=== PATIENT | female | born 1995 | race Caucasian/White ===

== ENCOUNTER 2019-08-07 08:19 | Observation (INO) ==
[2019-08-07 08:28] VITALS: BMI 23.1
[2019-08-07 09:12] LABS: BILIRUBIN,URINE NEGATIVE (NEGATIVE); BLOOD/HEMOGLOBIN,URINE NEGATIVE (NEGATIVE); GLUCOSE, URINE NEGATIVE (NEGATIVE); KETONES,URINE 1+ (NEGATIVE); LEUKOCYTE ESTERASE ,URINE 1+ (NEGATIVE); NITRITES,URINE NEGATIVE (NEGATIVE); PROTEIN,URINE 2+ (NEGATIVE); UROBILINOGEN,URINE 1+ (NORMAL)
[2019-08-07] MEDS ORDERED: ZOFRAN INJ 4 MG VIAL IVP ONE (09:15)
[2019-08-07] MEDS ORDERED: NS 1000 ML 1,000 ML IV ONE (09:15)
--- NOTE | 2019-08-07 09:15 | ED.ABDFE ---
HPI Time Seen Time Seen by Provider: 08/07/19 09:00 PCP Primary Care Physician: ADAM ALLEN Complaint Doctors Chief Complaint Comments: A 23 y/o female presenting with Rt. sided and mid. abdominal pain. This started at about 0300 hrs. today. It was sharp and crampy in nature and had remained constant, though it has lessened in intensity now. There was no radiation. She felt chills but has had no fever, SOB or cough. She had vomited twice. Chief Complaint:: PT STATED SHE HAS BEEN HAVING SHARP ABD PAIN, MILD PAIN LAST DECEMBER, AND THIS MORNING AT 3AM THE PAIN WAS SEVERE. STATED SHE VOMITED 2 TIMES IN THE PAST 24 HOURS Reviewed Nurses Notes Review: Yes Source History Provided: Patient Mode of arrival Mode of Arrival: Ambulatory Timing Onset of Chief Complaint: 12/25/18 Came on: Gradually Duration Since Onset: Constant Severity Severity: Moderate and Severe Quality Quality: Cramping Context History of: None Modifying factors Worsening Factors: Nothing Improving Factors: denies Antacids, Food, Position, Lying Still and Nothing Associated signs and symptoms Associated Signs and Symptoms: Nausea and Vomiting PMH PMH Past Medical History: No Past Surgical History: Yes Past Surgical History Comment: TEETH Family History History of Family Medical Conditions: No Social History Does patient currently use any type of tobacco product: No Have you used tobacco products in the last 12 months: No Type of Tobacco Use: None Does any household member use tobacco: No Alcohol Use: Rarely Do you use any recreational Drugs:: No Lives With: Family Lives Where: Home Travel Risk Coronavirus risk:travel/contact w/high risk person: No Has patient experienced Coronavirus symptoms: No Infectious screening In the last 2 months have you had wt loss of >10#?: NO Have you had fever, night sweats or hemotysis?: No Have you traveled outside the country in the last 6 months?: No Isolation: Standard ROS Review of Systems Constitutional: Chills Eyes: No Symptoms Reported ENTM: No Symptoms Reported Respiratoy: No Symptoms Reported Cardiovascular: No Symptoms Reported Gastrointestinal/Abdominal: Abdominal Pain, Nausea and Vomiting Genitourinary: No Symptoms Reported Neurological: No Symptoms Reported Musculoskeletal: No Symptoms Reported Integumentary: No Symptoms Reported Hematologic/Lymphatic: No Symptoms Reported Endocrine: No Symptoms Reported Psychiatric: No Symptoms Reported PE Vital Signs Vitals: Temperature 98.3 F Pulse Rate 76 Respiratory Rate 18 Blood Pressure 119/85 O2 Sat by Pulse Oximetry 98 General Limitations: No Limitations General Appearance: Alert and In No Apparent Distress Head Head Exam: Normal Inspection, Atraumatic and Normocephalic Eyes Eye exam: Normal Appearance and EOMI ENT ENT Exam: Normal Exam, Normal Oropharynx, Normal External Ear Exam and Mucous Membranes Moist Neck Neck Exam: Normal Inspection, Full ROM and Trachea Midline Chest Chest Inspection: Normal Inspection Respiratory Respiratory Exam: Normal Lung Sounds Bilat Cardiovascular Cardiovascular Exam: Regular Rate, Normal Rhythm, Normal Heart Sounds, +S1 and +S2 Abdominal Exam Abdominal Exam: Normal Inspection, Normal Bowel Sounds, Soft and Tenderness; negative Distention, Guarding, Rebound, Rigidity, Dimnished Bowel Sounds, Hyperactive Bowel Sounds, Hypoactive Bowel Sounds, Organomegaly, Trauma, Incision, Ascites, Mass, Bruit, Pulsatile Mass and Hernia Abdominal Tenderness: RLQ Rectal Rectal Exam: Deferred Back Back Exam: Normal Inspection and Full ROM Extremeties Extremities Exam: Normal Inspection and Full ROM External Exam: Female: Deferred Neurologic Neurological Exam: Alert and Oriented X3 Psychiatric Psychiatric Exam: Normal Affect and Normal Mood Skin Skin Exam: Dry and Intact ROR Labs Reviewed Result Diagrams: 08/07/19 09:21 08/07/19 09:21 Laboratory: WBC 14.6 X10^3/uL (3.6-10.0) H 08/07/19 09:21 RBC 4.65 X10^6/uL (3.5-5.4) 08/07/19 09:21 Hgb 13.6 g/dL (12.0-16.0) 08/07/19 09:21 Hct 39.5 % (36.0-47.0) 08/07/19 09:21 MCV 84.8 fL (80.0-100.0) 08/07/19 09:21 MCH 29.2 pg (27.0-34.0) 08/07/19 09:21 MCHC 34.4 g/dL (33.0-35.0) 08/07/19 09:21 RDW 13.4 % (11.6-16.5) 08/07/19 09:21 Plt Count 168 X10^3/uL (150.0-450.0) 08/07/19 09:21 Plt Count Comment Adequate (ADEQUATE) 08/07/19 09:21 MPV 8.3 fL (7.4-11.0) 08/07/19 09:21 Neut % (Auto) 90.8 % (42.0-75.0) H 08/07/19 09:21 Lymph % (Auto) 4.1 % (21.0-51.0) L 08/07/19 09:21 [place] % (Auto) 4.7 % (0.0-13.0) 08/07/19 09:21 Eos % (Auto) 0.2 % (0.9-2.9) L 08/07/19 09:21 Baso % (Auto) 0.2 % (0.2-1.0) 08/07/19 09:21 Neut # (Auto) 13.3 x10^3/uL (2.2-4.8) H 08/07/19 09:21 Lymph # (Auto) 0.6 X10^3/uL (1.3-2.9) L 08/07/19 09:21 [place] # (Auto) 0.7 x10^3/uL (0.3-0.8) 08/07/19 09:21 Eos # (Auto) 0.0 x10^3/uL (0.0-0.2) 08/07/19 09:21 Baso # (Auto) 0.0 X10^3/uL (0.0-0.1) 08/07/19 09:21 Absolute Nucleated RBC 0.0 /100WBC 08/07/19 09:21 Total Counted 100 08/07/19 09:21 Neutrophils % (Manual) 85 % (39-76) H 08/07/19 09:21 Band Neutrophils % 3 % (0-10) 08/07/19 09:21 Lymphocytes % (Manual) 7 % (13-43) L 08/07/19 09:21 Monocytes % (Manual) 5 % (4-9) 08/07/19 09:21 Plt Morphology Comment Normal (NORMAL) 08/07/19 09:21 RBC Morphology Normal (NORMAL) 08/07/19 09:21 Sodium 137 mmol/L (136-145) 08/07/19 09:21 Corrected Sodium TNP 08/07/19 09:21 Potassium 4.1 mmol/L (3.5-5.1) 08/07/19 09:21 Chloride 103 mmol/L (98-107) 08/07/19 09:21 Carbon Dioxide 26.8 mmol/L (21-32) 08/07/19 09:21 BUN 11 mg/dL (7-18) 08/07/19 09:21 Creatinine 0.81 mg/dL (0.55-1.02) 08/07/19 09:21 Est GFR (MDRD) Af Amer > 60 (>60) 08/07/19 09:21 Est GFR (MDRD) Non-Af > 60 (>60) 08/07/19 09:21 Glucose 106 mg/dL (65-99) H 08/07/19 09:21 Calcium 9.0 mg/dL (8.5-10.1) 08/07/19 09:21 Corrected Calcium TNP 08/07/19 09:21 Total Bilirubin 0.50 mg/dL (0.2-1.0) 08/07/19 09:21 AST 16 Units/L (15-37) 08/07/19 09:21 ALT 16 Units/L (12-78) 08/07/19 09:21 Alkaline Phosphatase 35 Units/L (46-116) L 08/07/19 09:21 Total Protein 7.4 g/dL (6.4-8.2) 08/07/19 09:21 Albumin 3.8 g/dL (3.4-5.0) 08/07/19 09:21 Globulin 3.6 g/dL (2.5-4.5) 08/07/19 09:21 Albumin/Globulin Ratio 1.1 Ratio (1.1-2.1) 08/07/19 09:21 Specimen Type Clean catch urine 08/07/19 08:55 Urine Color Yellow (YELLOW) 08/07/19 08:55 Urine Appearance Hazy (CLEAR) 08/07/19 08:55 Urine pH 7.0 (5.0 - 8.0) 08/07/19 08:55 Ur Specific Carpio 1.015 (1.000-1.030) 08/07/19 08:55 Urine Protein 2+ (NEGATIVE) 08/07/19 08:55 Urine Glucose (UA) Negative (NEGATIVE) 08/07/19 08:55 Urine Ketones 1+ (NEGATIVE) 08/07/19 08:55 Urine Occult Blood Negative (NEGATIVE) 08/07/19 08:55 Urine Nitrite Negative (NEGATIVE) 08/07/19 08:55 Urine Bilirubin Negative (NEGATIVE) 08/07/19 08:55 Urine Urobilinogen 1+ (NORMAL) 08/07/19 08:55 Ur Leukocyte Esterase 1+ (NEGATIVE) 08/07/19 08:55 Urine RBC 0-2 /HPF (0-3) 08/07/19 08:55 Urine WBC 3-5 /HPF (0-5) 08/07/19 08:55 Ur Squamous Epith Cells Few /HPF (NEGATIVE) 08/07/19 08:55 Amorphous Sediment 1+ /HPF (NEGATIVE) 08/07/19 08:55 Urine Bacteria Trace /HPF (NEGATIVE) 08/07/19 08:55 Ur Culture Indicated? No/not indicated 08/07/19 08:55 Opioid Opioid Risk Tool Age (Pepito box if 16-45): Yes History of Preadolescent Sexual Abuse: No Total: 1 Total Score Risk Category: Low Risk Copyright: Gregory JOHNSON predicting aberrant behaviors Diagnosis Discharge Problem: Appendicitis Qualifiers: Appendicitis type: acute appendicitis Acute appendicitis type: unspecified acute appendicitis type Qualified Code(s): K35.80 - Unspecified acute appendicitis Instructions Instructions: Laparoscopic Appendectomy, Adult, Care After, [id number] ADDITIONAL NOTES Additional Notes Additional Notes: Name: NOAH HARKINS [facility]#: [id number] : 1995 Sex: F Location: ER Order Number(s): [id number] Procedure(s):ABDOMEN/PELVIS WITH CON Ordering Physician: TRENT BAL Primary Care: Stephany Allen Service Date: 08/07/19 Service Time: 1115 HISTORY Right lower quadrant abdominal pain, vomiting STUDY ABDOMEN/PELVIS WITH CON Technique: Axial post-contrast images with coronal and sagittal reformats. Dose reduction procedures were used with mA/kv adjusted for body size. COMPARISON None FINDINGS The lung bases are clear. The liver, spleen, adrenal glands, and pancreas are within normal limits. No opaque stones are present within the gallbladder. The kidneys are unobstructed and without stones or masses. No ureteral calculi are identified. Abdominal aorta is normal. No enlarged intraperitoneal or retroperitoneal lymphadenopathy is identified. There are no findings suggestive of enteritis, diverticulitis, or colitis. There is a very large amount of stool throughout the colon suggestive of constipation. However, there is moderate distension of the appendix maximum width 10 mm. There is moderate periappendiceal inflammation. Findings are suggestive of early acute appendicitis. Surgical evaluation is recommended. Examination of the pelvis demonstrated no evidence for pelvic masses, pelvic fluid, or pelvic lymphadenopathy. No bladder abnormality is identified. No lytic or blastic skeletal lesions of significance are identified. IMPRESSION Findings suggestive of early acute appendicitis with mild appendiceal distension, mild wall enhancement, and [id number] periappendiceal inflammation. Surgical evaluation is recommended. Electronically signed by: VJ YIP (Aug 07, 2019 11:39:24) Report Electronically signed: 08/07/19 [id number] CC: Trent Bal
[2019-08-07 09:18] LABS: APPEARANCE,URINE HAZY (CLEAR); COLOR,URINE YELLOW (YELLOW)
[2019-08-07] MEDS ORDERED: NS 1000 ML 1,000 ML ONE (09:23)
[2019-08-07] MEDS ORDERED: ZOFRAN INJ 4 MG VIAL ONE ×2 (09:23→15:25)
[2019-08-07 09:32] LABS: AMORPHOUS SEDIMENT,UR 1+ /HPF (NEGATIVE); BACTERIA,URINE TRACE /HPF (NEGATIVE); RBC,URINE 0-2 /HPF (0-3); SQUAMOUS EPITHELIAL CELL,UR FEW /HPF (NEGATIVE)
[2019-08-07 09:33] LABS: BASOPHILS % (AUTO) 0.2 % (0.2-1.0); EOSINOPHILS % (AUTO) 0.2 % (0.9-2.9); HEMATOCRIT 39.5 % (36.0-47.0); HEMOGLOBIN 13.6 g/dL (12.0-16.0); LYMPHOCYTES # (AUTO) 0.6 X10^3/uL (1.3-2.9); LYMPHOCYTES % (AUTO) 4.1 % (21.0-51.0); MEAN CORPUSCULAR HEMOGLOBIN 29.2 pg (27.0-34.0); MEAN CORPUSCULAR HGB CONC 34.4 g/dL (33.0-35.0); MEAN CORPUSCULAR VOLUME 84.8 fL (80.0-100.0); MEAN PLATELET VOLUME 8.3 fL (7.4-11.0); MONOCYTES # (AUTO) 0.7 x10^3/uL (0.3-0.8); MONOCYTES % (AUTO) 4.7 % (0.0-13.0); NEUTROPHILS # (AUTO) 13.3 x10^3/uL (2.2-4.8); NEUTROPHILS % (AUTO) 90.8 % (42.0-75.0); PLATELET COUNT 168 X10^3/uL (150.0-450.0); RED BLOOD COUNT 4.65 X10^6/uL (3.5-5.4); RED CELL DISTRIBUTION WIDTH 13.4 % (11.6-16.5); WHITE BLOOD COUNT 14.6 X10^3/uL (3.6-10.0)
[2019-08-07 09:44] LABS: ALANINE AMINOTRANSFERASE 16 Units/L (12-78); ALBUMIN 3.8 g/dL (3.4-5.0); ALKALINE PHOSPHATASE 35 Units/L (46-116); ASPARTATE AMINO TRANSFERASE 16 Units/L (15-37); BLOOD UREA NITROGEN 11 mg/dL (7-18); CARBON DIOXIDE 26.8 mmol/L (21-32); CHLORIDE 103 mmol/L (98-107); CREATININE 0.81 mg/dL (0.55-1.02); SODIUM 137 mmol/L (136-145); TOTAL PROTEIN 7.4 g/dL (6.4-8.2); eGFR NON BLACK RACES > 60 (>60)
[2019-08-07 10:08] LABS: BAND NEUTROPHILS % 3 % (0-10); PLATELET MORPHOLOGY COMMENT NORMAL (NORMAL)
--- NOTE | 2019-08-07 11:40 | CT ---
HISTORYRight lower quadrant abdominal pain, vomitingSTUDYABDOMEN/PELVIS WITH CONTechnique: Axial post-contrast images with coronal and sagittal reformats. Dose reduction procedures were used with mA/kv adjusted for body size.COMPARISONNoneFINDINGSThe lung bases are clear. The liver, spleen, adrenal glands, and pancreas are within normal limits. No opaque stones are present within the gallbladder. The kidneys are unobstructed and without stones or masses. No ureteral calculi are identified. Abdominal aorta is normal. No enlarged intraperitoneal or retroperitoneal lymphadenopathy is identified. There are no findings suggestive of enteritis, diverticulitis, or colitis. There is a very large amount of stool throughout the colon suggestive of constipation. However, there is moderate distension of the appendix maximum width 10 mm. There is moderate periappendiceal inflammation. Findings are suggestive of early acute appendicitis. Surgical evaluation is recommended. Examination of the pelvis demonstrated no evidence for pelvic masses, pelvic fluid, or pelvic lymphadenopathy. No bladder abnormality is identified. No lytic or blastic skeletal lesions of significance are identified.IMPRESSIONFindings suggestive of early acute appendicitis with mild appendiceal distension, mild wall enhancement, and [id number] periappendiceal inflammation. Surgical evaluation is recommended.Electronically signed by: VJ YIP (Aug 07, 2019 11:39:24)
[2019-08-07] MEDS ORDERED: FLAGYL IV PREMIX 500 MG BAG 500 MG/100 ML BAG IV ONE ×2 (12:00→12:16)
[2019-08-07] MEDS ORDERED: VANCOMYCIN IV *PREMIX 1 G/200 ML BAG 1 G/200 ML PIGGYBACK IV ONE (12:01)
[2019-08-07] MEDS ORDERED: FENTANYL INJ 250 mcg ONE (12:30)
[2019-08-07] MEDS ORDERED: LR 1000 ML IV 0 ML IV ONE (12:32)
[2019-08-07] MEDS ORDERED: NS 250 ML IV 250 ML IV ONE (12:35)
[2019-08-07] MEDS ORDERED: VANCOMYCIN HCL ONE ×2 (12:35→21:15)
[2019-08-07] MEDS ORDERED: LR 1000 ML IV 1,000 ML IV ONE (12:43)
[2019-08-07] MEDS ORDERED: LR 1000 ML IV 1,000 ML IV SCH (13:00)
[2019-08-07] MEDS ORDERED: BACTROBAN TOPICAL OINT ONE (13:01)
[2019-08-07] MEDS ORDERED: DILAUDID INJ IVP PRN (13:50)
--- NOTE | 2019-08-07 14:53 | OR.IMMED ---
Immediate Post-Op Note - Immediate Post-Op Note Pre-Op Diagnosis: acute appendicitis Post-Op Diagnosis: acute appendicitis Procedure: laparoscopic appendectomy Surgeon/[employer]: Carlos Specimens Removed: appendix. Estimated Blood Loss: less than 10 cc Drains: NONE Complications: none . Condition: Stable (on IV ATB for 24 h .may have water)
[2019-08-07] MEDS: D5 1/2 NS 1000 ML 1,000 ML IV SCH ×2 (14:55→21:28)
[2019-08-07] MEDS ORDERED: XYLOCAINE 2 % (PLAIN) ONE (15:25)
[2019-08-07] MEDS ORDERED: DIPRIVAN VIAL ONE (15:25)
[2019-08-07] MEDS ORDERED: NEOSTIGMINE INJ ONE (15:25)
[2019-08-07] MEDS ORDERED: TORADOL 30 MG VIAL ONE (15:25)
[2019-08-07] MEDS ORDERED: NORCURON INJ 10 MG VIAL ONE (15:25)
[2019-08-07] MEDS ORDERED: ROBINUL ONE (15:25)
[2019-08-07] MEDS ORDERED: LTA KIT LIDOCAINE 4% ONE (15:25)
[2019-08-07] MEDS ORDERED: QUELICIN (OR ANECTINE) ONE (15:25)
[2019-08-07] MEDS ORDERED: SUPRANE ONE (15:25)
[2019-08-07] MEDS ORDERED: VERSED ONE (15:25)
[2019-08-07] MEDS ORDERED: ZOFRAN INJ 4 MG VIAL IVP PRN (19:44)
[2019-08-07] MEDS: FLAGYL IV PREMIX 500 MG BAG 500 MG/100 ML BAG IV SCH (20:33)
[2019-08-07] MEDS ORDERED: NS 100 ML IV + SPIKE MINIBAG* 100 ML IV ONE (21:15)
[2019-08-07] MEDS: VANCOMYCIN HCL 500 MG in D5W 100 ML IV 100 ML IV SCH (21:28)
[2019-08-08] MEDS ORDERED: VANCOMYCIN HCL ONE (04:29)
[2019-08-08] MEDS ORDERED: NS 100 ML IV + SPIKE MINIBAG* 100 ML IV ONE (04:31)
[2019-08-08] MEDS: FLAGYL IV PREMIX 500 MG BAG 500 MG/100 ML BAG IV SCH (04:59)
[2019-08-08 05:22] LABS: BASOPHILS % (AUTO) 0.5 % (0.2-1.0); EOSINOPHILS # (AUTO) 0.1 x10^3/uL (0.0-0.2); EOSINOPHILS % (AUTO) 2.5 % (0.9-2.9); HEMATOCRIT 33.6 % (36.0-47.0); HEMOGLOBIN 11.7 g/dL (12.0-16.0); LYMPHOCYTES # (AUTO) 1.6 X10^3/uL (1.3-2.9); LYMPHOCYTES % (AUTO) 27.7 % (21.0-51.0); MEAN CORPUSCULAR HEMOGLOBIN 29.9 pg (27.0-34.0); MEAN CORPUSCULAR HGB CONC 34.8 g/dL (33.0-35.0); MEAN CORPUSCULAR VOLUME 85.9 fL (80.0-100.0); MEAN PLATELET VOLUME 8.5 fL (7.4-11.0); MONOCYTES # (AUTO) 0.5 x10^3/uL (0.3-0.8); MONOCYTES % (AUTO) 8.7 % (0.0-13.0); NEUTROPHILS # (AUTO) 3.5 x10^3/uL (2.2-4.8); NEUTROPHILS % (AUTO) 60.6 % (42.0-75.0); PLATELET COUNT 140 X10^3/uL (150.0-450.0); RED BLOOD COUNT 3.91 X10^6/uL (3.5-5.4); RED CELL DISTRIBUTION WIDTH 13.7 % (11.6-16.5)
[2019-08-08] MEDS: D5 1/2 NS 1000 ML 1,000 ML IV SCH (05:22)
[2019-08-08 05:38] LABS: ALANINE AMINOTRANSFERASE 14 Units/L (12-78); ALBUMIN 2.8 g/dL (3.4-5.0); ALKALINE PHOSPHATASE 27 Units/L (46-116); ASPARTATE AMINO TRANSFERASE 13 Units/L (15-37); BLOOD UREA NITROGEN 5 mg/dL (7-18); CARBON DIOXIDE 25.8 mmol/L (21-32); CHLORIDE 106 mmol/L (98-107); CREATININE 0.75 mg/dL (0.55-1.02); SODIUM 138 mmol/L (136-145); eGFR NON BLACK RACES > 60 (>60)
[2019-08-08] MEDS: VANCOMYCIN HCL 500 MG in D5W 100 ML IV 100 ML IV SCH (05:39)
[2019-08-08 05:48] LABS: WHITE BLOOD COUNT 5.8 X10^3/uL (3.6-10.0)
[2019-08-08 08:31] VITALS: BP 99/57
== END 2019-08-08 11:29 | disposition home or self-care (01) ==
LOC: ER 08:19 → MED/SURG 08:19
PROVIDERS: ADMIT Obstetrics & Gynecology Obstetrics; ATTEND Obstetrics & Gynecology Obstetrics
PROC: APPYLAP (ICD-10-PCS; 2019-08-07 12:45)
DX: K35.890 Other acute appendicitis without perforation or gangrene; R10.84 Generalized abdominal pain
CPT/HCPCS: 36415; 74177; 80053; 81001; 85025; 96365; 96374; 96375; 99284; A4216; A4222; G0378; J0330; J1885; J2250; J2405; J2704; J2710; J3010; J3370; J3490; J7030; J7050; J7120; S0030; S5010